=== PATIENT | female | born 1960 | race Two or more races ===

== ENCOUNTER 2018-06-14 07:48 | Outpatient (CLI) | payer OTHER ==
[~2018-06-14 07:48] MED LIST: CEFADROXIL500 MG PO; JANUMET 50-5001 EACH PO; LOTREL 5-10 MG1 CAP PO; NEURONTIN300 MG PO; PERCOCET 5-3251 EACH PO; SYMBICORT 16010.2 GM IH; ULTRAM50 MG PO; VENTOLIN HFA18 GM IH; XARELTO10 MG PO
== END 2018-06-14 07:54 | disposition home or self-care (01) ==
LOC: MAMO-SONO 07:48
DX: Z12.31 Encounter for screening mammogram for malignant neoplasm of breast (principal); Z87.898 Personal history of other specified conditions; N60.11 Diffuse cystic mastopathy of right breast; N60.12 Diffuse cystic mastopathy of left breast

== ENCOUNTER 2018-06-14 09:03 | Outpatient (CLI) | payer OTHER | END 2018-06-14 09:13 | disposition home or self-care (01) | LOC: LAB 09:03 | DX: D50.8 Other iron deficiency anemias (principal); E03.8 Other specified hypothyroidism; E78.2 Mixed hyperlipidemia; R82.79 Other abnormal findings on microbiological examination of urine; N30.80 Other cystitis without hematuria ==

== ENCOUNTER 2018-06-28 09:48 | Emergency (ER) | payer OTHER ==
[~2018-06-28] VITALS: Ht 157.5 cm; Wt 63.5 kg
[2018-06-28] MEDS ORDERED: NORFLEX100MG PO (14:45)
== END 2018-06-28 14:47 | disposition home or self-care (01) ==
LOC: ER 09:48
DX: R51 Headache (principal); B34.9 Viral infection, unspecified; M54.2 Cervicalgia; J11.1 Influenza due to unidentified influenza virus with other respiratory manifestations

== ENCOUNTER 2018-06-30 10:46 | Outpatient (CLI) | payer OTHER ==
[~2018-06-30 10:46] MED LIST changes: +NORFLEX100MG PO
== END 2018-06-30 11:21 | disposition home or self-care (01) ==
LOC: NUCLEAR 10:46
DX: R42 Dizziness and giddiness (principal); R51 Headache; R55 Syncope and collapse

== ENCOUNTER → 2018-07-26 | Outpatient (CLI) | payer OTHER | END | disposition home or self-care (01) | LOC: MRI 10:16 | DX: M53.1 Cervicobrachial syndrome (principal); M54.2 Cervicalgia | CPT/HCPCS: 72141 ==

== ENCOUNTER 2019-01-13 09:10 | Emergency (ER) | payer OTHER ==
[~2019-01-13] VITALS: Ht 157.5 cm; Wt 64.0 kg
[2019-01-13] MEDS ORDERED: RANITIDINE HCL300 MG (09:29)
[2019-01-13] MEDS ORDERED: OMEPRAZOLE20 M2 (09:30)
[2019-01-13] MEDS ORDERED: SINGULAIR10 MG (09:31)
[2019-01-13] MEDS ORDERED: DICLOFENAC SODI75 MG (09:32)
[2019-01-13] MEDS ORDERED: AZITHROMYCIN500 MG (09:33)
[2019-01-13] MEDS ORDERED: CYCLOBENZAPRINE10 MG (09:33)
== END 2019-01-13 13:19 | disposition home or self-care (01) ==
LOC: ER 09:10
DX: I16.1 Hypertensive emergency (principal); I10 Essential (primary) hypertension; F41.8 Other specified anxiety disorders

== ENCOUNTER 2019-03-11 10:44 | Emergency (ER) | payer OTHER ==
[~2019-03-11] VITALS: Ht 157.5 cm; Wt 62.1 kg
[~2019-03-11 10:44] MED LIST changes: +AZITHROMYCIN500 MG; +CYCLOBENZAPRINE10 MG; +DICLOFENAC SODI75 MG; +OMEPRAZOLE20 M2; +RANITIDINE HCL300 MG; +SINGULAIR10 MG
== END 2019-03-11 13:38 | disposition home or self-care (01) ==
LOC: ER 10:44
DX: M43.6 Torticollis (principal)

== ENCOUNTER 2019-05-01 10:45 | Outpatient (CLI) | payer OTHER | END 2019-05-01 10:47 | disposition home or self-care (01) | LOC: RAD 10:45 | DX: R10.84 Generalized abdominal pain (principal); M46.47 Discitis, unspecified, lumbosacral region ==

== ENCOUNTER 2019-05-01 11:34 | Outpatient (CLI) | payer OTHER | END 2019-05-01 11:36 | disposition home or self-care (01) | LOC: LAB 11:34 | DX: N39.0 Urinary tract infection, site not specified (principal) ==

== ENCOUNTER 2019-05-19 08:27 | Emergency (ER) | payer OTHER ==
[~2019-05-19] VITALS: Ht 157.5 cm; Wt 59.9 kg
[2019-05-19] MEDS ORDERED: PEPCID AC10 MG (08:43)
[2019-05-19] MEDS ORDERED: IRBESARTAN-HCT1 EACH (08:43)
== END 2019-05-19 10:09 | disposition home or self-care (01) ==
LOC: ER 08:27
DX: G44.89 Other headache syndrome (principal)

== ENCOUNTER → 2019-05-31 | Outpatient (CLI) | payer OTHER ==
[~2019-05-31] MED LIST changes: +IRBESARTAN-HCT1 EACH; +PEPCID AC10 MG
== END | disposition home or self-care (01) ==
LOC: MRI 10:02
DX: J32.3 Chronic sphenoidal sinusitis (principal)
CPT/HCPCS: 70551

== ENCOUNTER 2019-07-06 07:41 | Outpatient (CLI) | payer OTHER | END 2019-07-06 07:43 | disposition home or self-care (01) | LOC: MAMO-SONO 07:41 | DX: R10.11 Right upper quadrant pain (principal); N60.11 Diffuse cystic mastopathy of right breast; N60.12 Diffuse cystic mastopathy of left breast; Z12.31 Encounter for screening mammogram for malignant neoplasm of breast ==

== ENCOUNTER 2020-07-06 09:13 | Emergency (ER) | payer OTHER ==
[~2020-07-06] VITALS: Ht 157.5 cm; Wt 65.8 kg
== END 2020-07-06 13:18 | disposition home or self-care (01) ==
LOC: ER 09:13
DX: B34.9 Viral infection, unspecified (principal); G43.809 Other migraine, not intractable, without status migrainosus; Z20.828 Contact with and (suspected) exposure to other viral communicable diseases

== ENCOUNTER 2020-07-24 11:40 | Outpatient (CLI) | payer OTHER | END 2020-07-24 11:46 | disposition home or self-care (01) | LOC: MAMO-SONO 11:40 | PROVIDERS: ATTEND Specialist | DX: N60.11 Diffuse cystic mastopathy of right breast (principal); N60.12 Diffuse cystic mastopathy of left breast; Z12.31 Encounter for screening mammogram for malignant neoplasm of breast ==

== ENCOUNTER 2020-10-23 09:59 | Outpatient (CLI) | payer OTHER | END 2020-10-23 10:07 | disposition home or self-care (01) | LOC: RAD 09:59 | PROVIDERS: ATTEND Internal Medicine Pulmonary Disease | DX: J44.1 Chronic obstructive pulmonary disease with (acute) exacerbation (principal) ==

== ENCOUNTER 2021-07-25 08:23 | Outpatient (CLI) | payer OTHER | END 2021-07-25 08:38 | disposition home or self-care (01) | LOC: MAMO-SONO 08:23 | PROVIDERS: ATTEND Specialist | DX: R92.1 Mammographic calcification found on diagnostic imaging of breast (principal); N60.11 Diffuse cystic mastopathy of right breast; N60.12 Diffuse cystic mastopathy of left breast; Z12.31 Encounter for screening mammogram for malignant neoplasm of breast ==

== ENCOUNTER 2021-11-10 08:45 | Emergency (ER) | payer OTHER ==
[~2021-11-10] VITALS: Ht 157.5 cm; Wt 61.2 kg
== END 2021-11-10 13:00 | disposition home or self-care (01) ==
LOC: ER 08:45
DX: U07.1 COVID-19 (principal); B34.9 Viral infection, unspecified

== ENCOUNTER 2021-12-09 06:17 | Outpatient (CLI) | payer OTHER | END 2021-12-09 06:21 | disposition home or self-care (01) | LOC: LAB 06:17 | PROVIDERS: ATTEND Internal Medicine | DX: U07.1 COVID-19 (principal) ==

== ENCOUNTER 2021-12-09 07:18 | Outpatient (CLI) | payer OTHER | END 2021-12-09 07:19 | disposition home or self-care (01) | LOC: NUCLEAR 07:18 | PROVIDERS: ATTEND Internal Medicine Cardiovascular Disease | DX: I25.10 Atherosclerotic heart disease of native coronary artery without angina pectoris (principal); I11.9 Hypertensive heart disease without heart failure; E11.9 Type 2 diabetes mellitus without complications | CPT/HCPCS: 78452; 93017; A9500 ==

== ENCOUNTER 2022-02-18 08:26 | Emergency (ER) | payer OTHER ==
[~2022-02-18] VITALS: Ht 157.5 cm; Wt 63.0 kg
[2022-02-18] MEDS ORDERED: TOPROL XL50 M1 PO (08:47)
== END 2022-02-18 12:46 | disposition home or self-care (01) ==
LOC: ER 08:26
DX: R07.89 Other chest pain (principal); R60.0 Localized edema; M54.50 Low back pain, unspecified; E11.9 Type 2 diabetes mellitus without complications; Z79.84 Long term (current) use of oral hypoglycemic drugs; I10 Essential (primary) hypertension

== ENCOUNTER 2022-07-13 12:05 | Emergency (ER) | payer OTHER ==
[~2022-07-13] VITALS: Ht 157.5 cm; Wt 60.3 kg
[~2022-07-13 12:05] MED LIST changes: +TOPROL XL50 M1 PO
[2022-07-13] MEDS ORDERED: FENOFIBRATE50 MG PO (12:48)
== END 2022-07-13 17:12 | disposition home or self-care (01) ==
LOC: ER 12:05
DX: B34.9 Viral infection, unspecified (principal); I10 Essential (primary) hypertension; Z20.822 Contact with and (suspected) exposure to COVID-19

== ENCOUNTER 2022-12-28 07:13 | Outpatient (CLI) | payer OTHER ==
[~2022-12-28 07:13] MED LIST changes: +FENOFIBRATE50 MG PO
== END 2022-12-28 08:32 | disposition home or self-care (01) ==
LOC: RAD 07:13
PROVIDERS: ATTEND Orthopaedic Surgery
DX: S52.532D Colles' fracture of left radius, subsequent encounter for closed fracture with routine healing (principal)

== ENCOUNTER 2023-04-02 07:23 | Emergency (ER) | payer OTHER ==
[~2023-04-02] VITALS: Ht 165.1 cm; Wt 68.0 kg
== END 2023-04-02 11:04 | disposition home or self-care (01) ==
LOC: ER 07:24
DX: R50.9 Fever, unspecified (principal); E11.9 Type 2 diabetes mellitus without complications; Z79.84 Long term (current) use of oral hypoglycemic drugs; I10 Essential (primary) hypertension; Z20.822 Contact with and (suspected) exposure to COVID-19
CPT/HCPCS: 96372; 99283; J1885

== ENCOUNTER 2023-04-25 11:03 | Emergency (ER) | payer OTHER ==
[~2023-04-25] VITALS: Ht 157.5 cm; Wt 58.5 kg
[2023-04-25] MEDS ORDERED: DICLOFENAC-MIS1 EAC1 PO (12:13)
[2023-04-25] MEDS ORDERED: GLUMETZA500 MG PO (12:13)
[2023-04-25 13:18] LABS: HEMATOCRIT 41.4 % (36.0-45.00); HEMOGLOBIN 14.1 g/dL (12.0-15.00); MEAN CORPUSCULAR HEMOGLOBIN 30.2 pg (27.00-32.0); PLATELET COUNT 235 K/uL (150-450); RED BLOOD COUNT 4.66 M/uL (4.00-6.00); RED CELL DISTRIBUTION WIDTH 12.9 % (11.5-14.5)
[2023-04-25 13:56] LABS: BILIRUBIN TOTAL 0.58 mg/dL (0.3-1.2); CALCIUM 9.8 mg/dL (8.5-10.1); CREATININE SERUM 1.07 mg/dL (0.55-1.02); GFR 51.63; GLOBULINA 4.4 G/DL (2.4-3.5); POTASSIUM 3.75 mEq/L (3.5-5.1); TOTAL PROTEIN 9.4 gm/dL (6.4-8.2)
[2023-04-25 13:58] LABS: INR 1.02; PARTIAL THROMBOPLASTIN TIME 26.1 SECONDS (22.0-34.0); PROTHROMBIN TIME 10.7 SECONDS (9.0-11.5)
== END 2023-04-25 20:04 | disposition home or self-care (01) ==
LOC: ER 11:03
PROVIDERS: General Practice
DX: I10 Essential (primary) hypertension (principal)
CPT/HCPCS: 71045; 96365; 99283; J3490

== ENCOUNTER 2023-05-11 09:07 | Outpatient (CLI) | payer OTHER ==
[~2023-05-11 09:07] MED LIST changes: +DICLOFENAC-MIS1 EAC1 PO; +GLUMETZA500 MG PO
== END 2023-05-11 09:13 | disposition home or self-care (01) ==
LOC: RAD 09:07
DX: M06.9 Rheumatoid arthritis, unspecified (principal); M06.1 Adult-onset Still's disease

== ENCOUNTER 2023-08-24 09:26 | Outpatient (CLI) | payer OTHER | END 2023-08-24 09:31 | disposition home or self-care (01) | LOC: MAMO-SONO 09:26 | PROVIDERS: ATTEND Internal Medicine Cardiovascular Disease | DX: N60.11 Diffuse cystic mastopathy of right breast (principal); N60.12 Diffuse cystic mastopathy of left breast; Z12.31 Encounter for screening mammogram for malignant neoplasm of breast ==

== ENCOUNTER 2023-08-24 13:31 | Outpatient (CLI) | payer OTHER | END 2023-08-24 13:32 | disposition home or self-care (01) | LOC: NUCLEAR 13:31 | DX: I50.1 Left ventricular failure, unspecified (principal) | CPT/HCPCS: 78472; A9538 ==

== ENCOUNTER 2024-02-11 07:44 | Outpatient (CLI) | payer OTHER | END 2024-02-11 07:46 | disposition home or self-care (01) | LOC: NUCLEAR 07:44 | PROVIDERS: ATTEND Internal Medicine | DX: I34.0 Nonrheumatic mitral (valve) insufficiency (principal); I34.1 Nonrheumatic mitral (valve) prolapse ==

== ENCOUNTER 2024-03-01 07:36 | Outpatient (CLI) | payer OTHER | END 2024-03-01 07:39 | disposition home or self-care (01) | LOC: NUCLEAR 07:36 | PROVIDERS: ATTEND Internal Medicine Rheumatology | DX: M25.50 Pain in unspecified joint (principal) | CPT/HCPCS: 78315; A9503 ==

== ENCOUNTER 2024-10-16 07:54 | Outpatient (CLI) | payer OTHER | END 2024-10-16 07:58 | disposition home or self-care (01) | LOC: RAD 07:54 | PROVIDERS: ATTEND Ophthalmology | DX: Z01.811 Encounter for preprocedural respiratory examination (principal) ==

== ENCOUNTER → 2024-12-22 08:15 | Outpatient (CLI) | payer OTHER | END | disposition home or self-care (01) | LOC: EKG 08:15 | PROVIDERS: ATTEND Ophthalmology | DX: I10 Essential (primary) hypertension (principal) ==